=== PATIENT | male | born 1950 | race Caucasian/White ===

== ENCOUNTER → 2024-06-09 10:32 | Outpatient (REF) | payer MEDICARE, OTHER, SELFPAY | LOC: HWRAD 10:32 | PROVIDERS: ATTENDING PHYSICIAN Podiatrist Foot & Ankle Surgery; FAMILY PHYSICIAN Family Medicine | DX: M19.072 Primary osteoarthritis, left ankle and foot (principal) | CPT/HCPCS: 73630 ==

== ENCOUNTER → 2024-08-10 07:58 | Outpatient (REF) | payer MEDICARE, OTHER, SELFPAY ==
[2024-08-10 10:33] LABS: ALT (SGPT) 19 U/L (0-50); AST (SGOT) 24 U/L (17-59); Albumin 4.6 g/dl (3.5-5.0); Alkaline Phosphatase 80 U/L (38-126); Blood Urea Nitrogen 15 mg/dl (9-20); Calcium 9.9 mg/dl (8.4-10.2); Carbon Dioxide 24 mmol/L (22-30); Chloride 110 mmol/L (98-107); Glucose 110 mg/dl (70-99); HDL Cholesterol 43 mg/dl; LDL Cholesterol, Calculated 66 mg/dl; Potassium 4.4 mmol/L (3.5-5.1); Sodium 142 mmol/L (135-145); Total Cholesterol 136 mg/dl (50-199); Total Protein 6.5 g/dl (6.3-8.2); Triglyceride 136 mg/dl (10-149); Very Low Density Lipoprotein 27 mg/dl (0-30); eGFR > 60.00
== END ==
LOC: HWLAB 07:58
PROVIDERS: ATTENDING PHYSICIAN Internal Medicine Cardiovascular Disease; FAMILY PHYSICIAN Family Medicine
DX: I10 Essential (primary) hypertension (principal)
CPT/HCPCS: 36415; 80053; 80061

== ENCOUNTER → 2024-12-19 10:52 | Outpatient (REF) | payer MEDICARE, OTHER, SELFPAY | LOC: HWLAB 10:52 | PROVIDERS: ATTENDING PHYSICIAN Internal Medicine Pulmonary Disease; FAMILY PHYSICIAN Family Medicine; REFERRING PHYSICIAN Physician Assistant Medical | DX: Z92.3 Personal history of irradiation (principal); R05.3 Chronic cough; C07 Malignant neoplasm of parotid gland; I48.0 Paroxysmal atrial fibrillation | CPT/HCPCS: 36415; 71046; 84443 ==

== ENCOUNTER → 2025-01-02 12:40 | Outpatient (REF) | payer MEDICARE, OTHER, SELFPAY ==
[2025-01-02 13:12] LABS: Hematocrit 30.2 % (39.0-52.0); Hemoglobin 10.1 g/dL (13.0-18.0); Mean Corp Hgb Conc. 33.4 g/dL (33.0-37.0); Mean Corpuscular Volume 101.3 fL (80.0-94.0); Nucleated Red Blood Cells % 0 % (-); Platelet Count 176 10^3/uL (130-400); Red Cell Dist. Width 16.8 % (11.5-14.5)
[2025-01-02 13:59] LABS: ALT (SGPT) 25 U/L (0-50); AST (SGOT) 29 U/L (17-59); Albumin 4.4 g/dl (3.5-5.0); Alkaline Phosphatase 74 U/L (38-126); Blood Urea Nitrogen 11 mg/dl (9-20); Calcium 9.0 mg/dl (8.4-10.2); Carbon Dioxide 25 mmol/L (22-30); Chloride 107 mmol/L (98-107); Glucose 97 mg/dl (70-99); Potassium 4.4 mmol/L (3.5-5.1); Sodium 137 mmol/L (135-145); Total Protein 6.4 g/dl (6.3-8.2); eGFR > 60.00
== END ==
LOC: SDSPAT 12:40
PROVIDERS: ATTENDING PHYSICIAN Student in an Organized Health Care Education/Training Program; FAMILY PHYSICIAN Family Medicine; OTHER PHYSICIAN Internal Medicine Cardiovascular Disease
DX: I48.0 Paroxysmal atrial fibrillation (principal)
CPT/HCPCS: 36415; 80053; 85025; 93005

== ENCOUNTER 2025-01-12 06:24 | Day surgery (SDC) | payer MEDICARE, OTHER, SELFPAY ==
[2025-01-02 13:21] VITALS: BMI 36.9
[2025-01-12] VITALS (13 sets, daily range): BP systolic 112–128; BP diastolic 59–75; BMI 36.0
[2025-01-12] MEDS: NSS 304 ML IV (07:33)
[2025-01-12] MEDS: NSS 1000 IV (08:20)
--- NOTE | 2025-01-12 16:47 | ITS.CL.PN ---
Production Operations Engineer - Procedure Note
Procedure
Procedure Note:
CARDIAC CATHETERIZATION REPORT
Date of Procedure: 01/12/2025
Referring: Dr. Zay Modi MD
Indication: chest pain concerning for angina, equivocal cardiac stress test
PROCEDURE(S)
1. left heart catheterization
2. coronary angiography
ACCESS: 6F right radial artery (closure: radial band)
CATHETERS
1. 6F JR4
2. 6F JL4
MODERATE SEDATION: 25 minutes of moderate sedation was utilized. An independent medical field representative was present to assist with and help manage the patient's level of consciousness and physiologic status.
HEMODYNAMIC DATA
LV 112/7 (EDP 10) mmHg
AO 116/66 (mean 87) mmHg
CORONARY ANGIOGRAPHY
Dominance: Right
LM: Large with mild disease
LAD: Large vessel giving rise to a moderate caliber D1/ramus, moderate caliber D2, small D3, and small D4. There is mild diffuse disease up to 40% focally in the mid vessel.
LCx: Large vessel giving rise to a large OM1, small OM2, large LPL1, and small LPL2. There is mild diffuse disease.
RCA: Large vessel giving rise to a moderate caliber RPDA. There is diffuse mild disease.
RADIATION: dose 317 mGy; DAP 18 Gy*cm2; fluoroscopy time 2.4 min
CONCLUSIONS
1. Nonobstructive coronary artery disease and right dominant system as described
2. Normal LV filling pressure and no aortic stenosis
RECOMMENDATIONS
1. Aggressive secondary prevention of coronary artery disease
2. Workup for etiology of atypical angina not related to epicardial coronary artery disease
Copy to: Dr. Zay Modi MD (assistant chief engineer); Dr. Qamar Lawson DO (PCP)
Signed: Mike Hinojosa MD, PhD
== END 2025-01-12 10:10 | disposition home or self-care (01) ==
LOC: CATH 06:24
PROVIDERS: ATTENDING PHYSICIAN Student in an Organized Health Care Education/Training Program; FAMILY PHYSICIAN Family Medicine; OTHER PHYSICIAN Internal Medicine Cardiovascular Disease
DX: I25.10 Atherosclerotic heart disease of native coronary artery without angina pectoris (principal); I48.0 Paroxysmal atrial fibrillation; I10 Essential (primary) hypertension; E78.5 Hyperlipidemia, unspecified; E66.9 Obesity, unspecified; F41.9 Anxiety disorder, unspecified; F32.A Depression, unspecified; Z85.818 Personal history of malignant neoplasm of other sites of lip, oral cavity, and pharynx; Z85.46 Personal history of malignant neoplasm of prostate; R73.01 Impaired fasting glucose; G47.33 Obstructive sleep apnea (adult) (pediatric); Z79.899 Other long term (current) drug therapy; Z79.82 Long term (current) use of aspirin; Z87.891 Personal history of nicotine dependence; Z88.0 Allergy status to penicillin
CPT/HCPCS: 99152; 99153; 93458; C1769; C1894; Q9967

== ENCOUNTER → 2025-03-14 09:07 | Outpatient (REF) | payer MEDICARE, OTHER, SELFPAY ==
[2025-03-14 12:27] LABS: Urine Character Clear (Clear)
[2025-03-14 13:03] LABS: Glycohemoglobin (HgbA1c) 4.2 % (4.0-5.9)
[2025-03-14 13:35] LABS: Hematocrit 29.3 % (39.0-52.0); Hemoglobin 10.0 g/dL (13.0-18.0); Mean Corp Hgb Conc. 34.1 g/dL (33.0-37.0); Mean Corpuscular Volume 95.4 fL (80.0-94.0); Platelet Count 154 10^3/uL (130-400); Red Cell Dist. Width 18.0 % (11.5-14.5)
[2025-03-14 13:36] LABS: Absolute Neutrophils -Man Diff 1.5 10^3/uL (1.4-6.5); Normal RBC Morphology Yes; Platelets Checked Yes; Total Cells Counted 100
[2025-03-14 13:38] LABS: Microalbumin, Random Urine 14.6 mg/dl (0.6-1.7); Urine Red Blood Cell 0-2 /HPF (0-2); Urine White Cell 0-2 /HPF (0-5)
[2025-03-14 13:39] LABS: Microalb - Urine Creatinine 75.200 mg/dl
[2025-03-14 13:41] LABS: ALT (SGPT) 19 U/L (0-50); AST (SGOT) 28 U/L (17-59); Albumin 4.3 g/dl (3.5-5.0); Alkaline Phosphatase 88 U/L (38-126); Blood Urea Nitrogen 15 mg/dl (9-20); Calcium 9.1 mg/dl (8.4-10.2); Carbon Dioxide 25 mmol/L (22-30); Chloride 103 mmol/L (98-107); Glucose 97 mg/dl (70-99); HDL Cholesterol 36 mg/dl; LDL Cholesterol, Calculated 65 mg/dl; Potassium 4.5 mmol/L (3.5-5.1); Sodium 134 mmol/L (135-145); Total Protein 6.3 g/dl (6.3-8.2); Very Low Density Lipoprotein 24 mg/dl (0-30); eGFR > 60.00
[2025-03-14 14:07] LABS: TSH 2.14 uIU/ml (0.47-4.68)
== END ==
LOC: HWLAB 09:07
PROVIDERS: ATTENDING PHYSICIAN Internal Medicine Cardiovascular Disease; FAMILY PHYSICIAN Family Medicine; REFERRING PHYSICIAN Internal Medicine
DX: E78.5 Hyperlipidemia, unspecified (principal); R73.9 Hyperglycemia, unspecified; I10 Essential (primary) hypertension; Z00.00 Encounter for general adult medical examination without abnormal findings; R73.03 Prediabetes
CPT/HCPCS: 36415; 80053; 80061; 81003; 81015; 82043; 82570; 83036; 84439; 84443; 85025